=== PATIENT | male | born 1960 | race American Indian/Alaskan Native ===

== ENCOUNTER 2016-09-05 00:46 | Emergency (ER) | payer OTHER ==
[~2016-09-05] VITALS: Ht 177.8 cm; Wt 81.7 kg
[~2016-09-05 00:46] MED LIST: NEURONTIN300 MG PO
[2016-09-05] MEDS ORDERED: SUBOXONE 4 MG-1 EACH SL (01:02)
== END 2016-09-05 01:20 | disposition home or self-care (01) ==
LOC: ED 00:46
DX: R21 Rash and other nonspecific skin eruption (principal); F17.200 Nicotine dependence, unspecified, uncomplicated; Z88.6 Allergy status to analgesic agent; Z79.899 Other long term (current) drug therapy
CPT/HCPCS: 99282